=== PATIENT | male | born 1960 | race Caucasian/White ===

== ENCOUNTER → 2021-09-10 | Outpatient (CLI) | payer OTHER ==
--- NOTE | 2021-09-10 12:57 | KCIC ---
EXAM: XR EYE_DETECT FOREIGN BODY 09/10/2021 12:48 PM CLINICAL INDICATION: Screening for MRI. History of metal in the eyes. COMPARISON: None TECHNIQUE: One view of the orbits FINDINGS: No metallic foreign bodies in the orbits. IMPRESSION: No metallic foreign bodies in orbits. Electronically signed by: Staci Newton MD (09/10/2021 12:55 PM) [id number]
== END ==
LOC: KCIC MRI 12:26
PROVIDERS: ATTEND Orthopaedic Surgery
DX: M75.101 Unspecified rotator cuff tear or rupture of right shoulder, not specified as traumatic (principal)
CPT/HCPCS: 70030

== ENCOUNTER → 2021-09-18 | Outpatient (CLI) | payer OTHER ==
[~2021-09-18] MED LIST: REGADENOSON 0.4 MG/5 ML DISP.SYRIN. IV ONE
--- NOTE | 2021-09-18 17:48 | CARD ---
MR#: [id number] Date of Study: 09/18/2021 Ordering Physician: PRICILA SIMS, Referring Physician: PRICILA SIMS, Tech: Claudia Bruner RD,T APPROVED REPORT EXAM: Two-dimensional and M-mode echocardiogram with Doppler and color Doppler. Other Information Quality : AverageHR: 63bpm Rhythm : NSR INDICATION Pre-Op 2D DIMENSIONS RVDd4.0 (2.9-3.5cm)Left Atrium(2D)4.8 (1.6-4.0cm) IVSd1.4 (0.7-1.1cm)Aortic Root(2D)3.4 (2.0-3.7cm) LVDd5.5 (3.9-5.9cm)LVOT Diameter2.4 (1.8-2.4cm) PWd1.8 (0.7-1.1cm)LVDs4.3 (2.5-4.0cm) FS (%) 22.4 %SV67.0 ml Aortic Valve AoV Peak Qasim.286.0cm/sAoV VTI56.2cm AO Peak GR.32.7mmHgLVOT Peak Qasim.86.8cm/s LVOT VTI 15.17cmAO Mean GR.18mmHg ROSALIND (VMAX)0.15yr8YCO (VTI)1.22cm2 Mitral Valve MV E Mpvqxmpw52.1cm/sMV DECEL UQEO688to MV A Dwxwjhnn09.3cm/sMV HRB00hk E/A Ratio0.6MVA (PHT)2.33cm2 Pulmonary Valve PV Peak Dnabvtkh360.2cm/sPV Peak Grad.5mmHg Pulmonary Vein S1 Stdfmllh89.2cm/sD2 Mkfrsiox23.4cm/s PVa qthgrikt555idld LEFT VENTRICLE The left ventricle is normal size. There is mild concentric left ventricular hypertrophy. The left ve ntricular systolic function is normal. LV ejection fraction is 55 to 60%. No regional wall motion abn ormalities noted. Tissue Doppler imaging reveals abnormal left ventricular diastolic dysfunction. No left ventricle thrombus noted on this study. There is no ventricular septal defect visualized. There is no left ventricular aneurysm. There is no mass noted in the left ventricle. RIGHT VENTRICLE The right ventricle is normal size. There is normal right ventricular wall thickness. The right ventr icular systolic function is normal. ATRIA The left atrium size is normal. The right atrium size is normal. The interatrial septum is intact wit h no evidence for an atrial septal defect or patent foramen ovale as noted on 2-D or Doppler imaging. AORTIC VALVE The aortic valve is trileaflet. Doppler and Color Flow revealed no significant aortic regurgitation. There is mild valvular aortic stenosis. Calculated aortic valve area is 1.2 cm2 with maximum pressure gradient of 33 mmHg and mean pressure gradient of 17 mmHg. Doppler and color-flow analysis revealed mild aortic stenosis. There is no aortic valvular vegetation. MITRAL VALVE The mitral valve is normal in structure and function. There is no evidence of mitral valve prolapse. There is no mitral valve stenosis. There is no mitral valve regurgitation noted. TRICUSPID VALVE The tricuspid valve is normal in structure and function. There is no tricuspid valve regurgitation no manjit. There is no tricuspid valve prolapse or vegetation. There is no tricuspid valve stenosis. PULMONIC VALVE The pulmonary valve is normal in structure and function. There is no pulmonic valvular regurgitation. There is no pulmonic valvular stenosis. GREAT VESSELS The aortic root is normal in size. The ascending aorta is normal in size. The pulmonary artery is nor mal. The IVC is normal in size and collapses >50% with inspiration. PERICARDIAL EFFUSION There is no pleural effusion. The pericardium appears normal. Critical Notification Critical Value: No <Conclusion> The left ventricle is normal size. The left ventricular systolic function is normal. LV ejection fraction is 55 to 60%. There is mild concentric left ventricular hypertrophy. Doppler and Color Flow revealed no significant aortic regurgitation. Calculated aortic valve area is 1.2 cm2 with maximum pressure gradient of 33 mmHg and mean pressure g radient of 17 mmHg. Doppler and color-flow analysis revealed mild aortic stenosis. There is no mitral valve regurgitation noted. There is no tricuspid valve regurgitation noted. Signed by : Andrea Jansen MD Electronically Approved : 09/18/2021 17:48:34
--- NOTE | 2021-09-18 18:00 | RAD ---
MR#: [id number] Date of Study: 09/18/2021 Ordering Physician: PRICILA SIMS Referring Physician: KATI MCDERMOTT Tech: RT Lacey Coats) (N) APPROVED REPORT Test Type: Pharmacological Stress Nurse/Tech: Destiny Coe RN Test Indications: pre-op clearance Cardiac History: COPD, smoker, HTN Medications: See Electronic Medical Record Medical History: See Electronic Medical Record Resting ECG: SR Resting Heart Rate: 68 bpm Resting Blood Pressure: 158/91mmHg Pretest Chest Pain: None Nurse/Tech Notes Lungs CTA, heart tones S1S2 Consent: The procedure was explained to the patient in lay terms. Informed consent was witnessed. Bryan eout was entered into [employer]. History and Stress Test performed by RT Lacey Coats) (N) Pharm. Details Pharmacologic stress testing was performed using 0.4mg per 5ml of regadenoson given intravenously ove r 7-10 seconds. Stress Symptoms No chest pain or symptoms. POST EXERCISE Reason for Termination: Infusion complete Max HR: 81 bpm Max Blood Pressure: 158/91mmHg Blood Pressure response to exercise: Normal blood pressure response during stress. Heart Rate response to exercise: normal response Chest Pain: No. Arrhythmia: No. ST Change: No. INTERPRETATION Stress EKG Conclusion: The resting EKG shows a sinus rhythm. The stress EKG shows no significant changes from baseline. No EKG evidence of stress-induced ischemia. Imaging Protocol IMAGE PROTOCOL: Rest Tc-99m/stress Tc-99m 1 day Rest: Stress: Viability: Radiopharm.Tc99m EzdjftjolHf26r Sestamibi Ehku40yJa 32.1mCi Duration 13.5min. 13min. Img Date 09/18/2021 09/18/2021 Inj-Img Awsp92kpa. 65min. Rest Admin Site:IV - Left HandAdministrator:RT Lacey Coats)(N) Stress Admin Site: IV - Left HandAdministrator: RT Lacey Thomas)(N) STRESS DATA End Diast. Vol.156.0mlLVEDV index BSA65.0ml End Syst. Vol.80.0mlLVESV index BSA34.0ml Myocardial Sebp671.0gEject. Aaoiqspx02.0% Stress Scores Regional WT2.00Summed WT37.00 Regional WM0.00Summed WM8.00 LV Perfusion The stress scans show no significant defects. The rest scans show no significant defects. Nuclear imaging shows no reversible ischemia or infarct. Wall Motion Left ventricular ejection fraction is 49%. LV Perf. Quant 17 Seg. SSS0.00 17 Seg. SRS0.00 17 Seg. SDS0.00 Stress Defect Extent (% LAD)0.00Rest Defect Extent (% LAD)0.00Rev. Defect Extent (% LAD)0.00 Stress Defect Extent (% LCX) 0.00Rest Defect Extent (% LCX)1.30Rev. Defect Extent (% LCX)0.00 Stress Defect Extent (% RCA)0.00Rest Defect Extent (% RCA)0.00Rev. Defect Extent (% RCA)0.00 Stress Defect Extent (% THAO)0.00Rest Defect Extent (% THAO)1.50Rev. Defect Extent (% THAO)0.00 Conclusion 1. No EKG evidence of stress-induced ischemia. 2. Nuclear imaging shows no reversible ischemia or infarct. 3. LV ejection fraction is calculated at 49%. 4. Moderately low risk Lexiscan nuclear stress test. Signed by : Andrea Jansen MD Electronically Approved : 09/18/2021 18:00:16
== END ==
LOC: ECHO 08:37
PROVIDERS: ATTEND Internal Medicine Cardiovascular Disease
DX: Z01.810 Encounter for preprocedural cardiovascular examination (principal); I35.1 Nonrheumatic aortic (valve) insufficiency; I51.7 Cardiomegaly
CPT/HCPCS: 78452; 93017; 93306; A9500; J2785; C8929

== ENCOUNTER → 2021-10-03 | Outpatient (CLI) | payer OTHER ==
--- NOTE | 2021-10-03 13:42 | RAD ---
EXAM: XR CHEST 2V 10/03/2021 9:22 AM CLINICAL INDICATION: Rib pain post fall COMPARISON: None TECHNIQUE: PA and lateral views of the chest FINDINGS: The heart and mediastinum are normal. Lungs are well-expanded and clear. No consolidatio n, pleural effusion, or pneumothorax. Pulmonary vascularity is normal. There is mild degenerative di sc disease. Mild leftward curvature of the thoracic spine. IMPRESSION: No displaced rib fracture or acute cardiopulmonary abnormality. Electronically signed by: Staci Newton MD (10/03/2021 1:39 PM) [id number]
== END ==
LOC: RAD 09:00
PROVIDERS: ATTEND Internal Medicine
DX: M43.8X4 Other specified deforming dorsopathies, thoracic region (principal); M51.34 Other intervertebral disc degeneration, thoracic region; R07.81 Pleurodynia; Z91.81 History of falling
CPT/HCPCS: 71046